=== PATIENT | female | born 1990 | race African-American/Black ===

== ENCOUNTER 2022-11-26 11:12 | Outpatient (CLI) | payer OTHER, SELFPAY ==
[2022-11-26 17:42] LABS: Influenza A QL RT-PCR Negative (Negative); Influenza B QL RT-PCR Negative (Negative); SARS-CoV-2 RNA PCR Positive (Negative)
== END 2022-11-26 11:13 | disposition home or self-care (01) ==
LOC: ANHGOSHLAB 11:14
PROVIDERS: PCP Family Medicine; Visit Provider Nurse Practitioner Family
DX: R05.9 Cough, unspecified (principal); R52 Pain, unspecified
CPT/HCPCS: 87636